=== PATIENT | male | born 1960 | race Caucasian/White ===

== ENCOUNTER 2021-06-11 13:19 | Inpatient (IN) | payer MEDICAID ==
[~2021-06-11] VITALS: Ht 172.7 cm; Wt 88.1 kg
[2021-06-11 13:46] LABS: BASOPHILS % (AUTO) 0.2 % (0-1); EOSINOPHILS % (AUTO) 0 % (0-6); HEMOGLOBIN 15.9 g/dl (14.0-17.9); LYMPHOCYTES # (AUTO) 0.3 X10'3 (1.1-4.8); LYMPHOCYTES % (AUTO) 3.7 % (21-51); MEAN CORPUSCULAR HEMOGLOBIN 28.6 PG (27.0-31.0); MEAN CORPUSCULAR HGB CONC 31.8 g/dL (33.0-36.5); MEAN PLATELET VOLUME 9.6 FL (7.4-10.4); MONOCYTES # (AUTO) 0.2 X10'3 (0-0.9); MONOCYTES % (AUTO) 2.3 % (2-12); NEUTROPHILS % (AUTO) 93.8 % (42-75); PLATELET COUNT 88 X10'3 (140-440); RED BLOOD COUNT 5.55 X10'6 (4.70-6.10); RED CELL DISTRIBUTION WIDTH 20.1 % (11.5-14.5); WHITE BLOOD COUNT 8.5 X10'3 (4.5-11.0)
--- NOTE | 2021-06-11 14:00 | NUR ---
Pt is awake and confused. Jaundice. C/O R UQ pain. Open wounds to postierior B LE. Dried stool on buttocks and down B LE. Edema to B LE. Pt stated that he lives alone and is unable to walk.
[2021-06-11 14:04] LABS: CLARITY,URINE CLOUDY (Clear); COLOR,URINE YELLOW (Yellow); GLUCOSE, URINE NEGATIVE (Neg); KETONES,URINE NEGATIVE (Neg); LEUKOCYTE ESTERASE ,URINE NEGATIVE (Neg); NITRITES, URINE NEGATIVE (Neg); OCCULT BLOOD,URINE SMALL (Neg); PROTEIN,URINE 30 mg/dl (Neg)
[2021-06-11 14:11] LABS: UA COLLECTION TYPE STRAIGHT CATH
[2021-06-11 14:12] LABS: MUCUS STRANDS MODERATE /LPF (Neg); SQUAMOUS EPITHELIAL CELL,UR FEW /LPF (FEW)
[2021-06-11 14:13] LABS: BACTERIA,URINE 1+ /HPF (Neg); RBC,URINE 0-2 /HPF (0-2); WBC,URINE 20-30 /HPF (0-4)
[2021-06-11 14:14] LABS: HYALINE CASTS 0-3 /LPF (NEGATIVE); TRANSITIONAL EPI CELLS,URINE FEW /HPF
[2021-06-11 14:15] LABS: ALANINE AMINOTRANSFERASE 171 U/L (12-78); ALBUMIN 2.1 G/DL (3.4-5.0); ALKALINE PHOSPHATASE 142 IU/L (46-116); ANION GAP 20 (8-16); ASPARTATE AMINO TRANSFERASE 430 U/L (10-37); BLOOD UREA NITROGEN 40 MG/DL (7-18); BUN/CREATININE RATIO 21.5 (5.4-32.0); CALCIUM 8.1 MG/DL (8.5-10.1); CHLORIDE 101 MMOL/L (99-107); CREATININE 1.86 MG/DL (0.60-1.10); GLUCOSE 90 MG/DL (70-104); POTASSIUM 3.9 MMOL/L (3.5-5.1); SODIUM 140 MMOL/L (135-145); TOTAL CARBON DIOXIDE 19.4 MMOL/L (24-32); eGFR 37 ML/MIN
[2021-06-11 14:16] LABS: ALBUMIN/GLOBULIN RATIO 0.6 (1.1-1.5); TOTAL PROTEIN 5.9 G/DL (6.4-8.2)
[2021-06-11] MEDS ORDERED: cefTRIAXone 1g/NS 100ml IVPB 100 ML IV ONE (14:20)
[2021-06-11 14:22] LABS: ANISOCYTOSIS 3+; PLATELET ESTIMATE DECREASED; TOTAL CELLS COUNTED 100
[2021-06-11] MEDS ORDERED: normal saline 1000ML IV soln IVB ONE (14:30)
[2021-06-11] MEDS ORDERED: morphine 4 MG/ML inj SYRINge IV ONE (14:30)
[2021-06-11] MEDS ORDERED: morphine 2 MG/ML inj. syringe IV ONE (14:35)
[2021-06-11] MEDS ORDERED: vancomycin/NS 1 GM ADD-VANTAGE 250 ML IV ONE (14:45)
[2021-06-11] MEDS ORDERED: diltiazem 5mg/ml 5ml inj. IV ONE (14:50)
[2021-06-11] MEDS ORDERED: iohexol 350MG/ML 100ml bottle IV ONE (15:05)
--- NOTE | 2021-06-11 15:15 | NUR ---
Returned from CT.
[2021-06-11 15:41] LABS: ETHANOL < 0.010 GM/DL (0.0-0.010)
--- NOTE | 2021-06-11 15:57 | NUR ---
Eleuterio gabriel (cousin) [phone]
[2021-06-11 16:19] LABS: ABG BASE EXCESS -6.4 mmol/L (-2.0-2.0); ABG HCO3 17.4 mmol/L (22.0-26.0); ABG OXYGEN SATURATION 98.4 % (94-97); ABG PCO2 (T) 30.6 mmHg (35.0-48.0); ABG PO2 (T) 129.8 mmHg (75.0-100.0); ALLEN'S TEST POSITIVE; FCOHb 1.5 % (0.0-3.9); FMetHb 0.3 % (0.0-1.5); FO2Hb 96.6 % (94-97); PATIENT TEMPERATURE 37.1; TOTAL HEMOGLOBIN 15.9 G/dl (14.0-18.0)
[2021-06-11] MEDS ORDERED: heparin 25,000 UNIT/250ml bag 250 ML IV SCH ×2 (16:35→16:41)
[2021-06-11] MEDS ORDERED: heparin 10,000 units/1 ML INJ IV ONE ×4 (16:35→17:20)
[2021-06-11] MEDS ORDERED: heparin 10,000 units/1 ML INJ IV PRN ×2 (16:45→17:20)
[2021-06-11] MEDS ORDERED: ondansetron/PF 4mg/2ml inj IV PRN (16:55)
[2021-06-11] MEDS ORDERED: sodium phosphate inj. 15 MMOL in dextrose 5%-water 250 ML IV PRN (16:55)
[2021-06-11] MEDS ORDERED: Neutra Phos packet PO PRN (16:55)
[2021-06-11] MEDS ORDERED: morphine 2 MG/ML inj. syringe IV PRN (16:55)
[2021-06-11] MEDS ORDERED: sodium phosphate inj. 30 MMOL in dextrose 5%-water 250 ML IV PRN (16:55)
[2021-06-11] MEDS ORDERED: potassium Cl 20 mEq SR tablet PO PRN ×2 (16:55)
[2021-06-11] MEDS ORDERED: LIDOcaine 2% 10ml TOPICAL JELLY (Urojet) TP ONE (16:55)
[2021-06-11] MEDS ORDERED: acetaminophen 325mg tablet PO PRN ×2 (16:55)
[2021-06-11] MEDS ORDERED: ipratropium/albuterol 3ml nebule NEB PRN (16:55)
[2021-06-11] MEDS ORDERED: magnesium 2GM in 50ml NS 50 ML IV PRN (16:55)
[2021-06-11] MEDS ORDERED: NORepinephrine 8mg/ 250ml NS 250 ML IV PRN (16:55)
[2021-06-11] MEDS ORDERED: magnesium Cl slow-release 64mg tablet PO PRN (16:55)
--- NOTE | 2021-06-11 17:00 | NUR ---
Late entry. Dr. Casarez aware of platlet level and INR.
[2021-06-11] MEDS ORDERED: sodium bicarbonate (8.4%) inj. 150 MEQ in dextrose 5%-water 1,000 ML IV SCH (17:05)
[2021-06-11] MEDS ORDERED: LISI5TAB22 PO (17:05)
[2021-06-11] MEDS ORDERED: SPIR25TA5 PO (17:07)
--- NOTE | 2021-06-11 17:16 | NUR ---
Dr. Casarez read the CXR and confirmed placement of R IJ central line.
[2021-06-11] MEDS ORDERED: vancomycin/NS 1 GM ADD-VANTAGE 250 ML X 1 DOSE IV ONE ×2 (17:25→17:55)
--- NOTE | 2021-06-11 17:30 | NUR ---
Bedside echo in progress.
[2021-06-11] MEDS: heparin 25,000 UNIT/250ml bag 250 ML IV SCH (17:42)
[2021-06-11 17:46] LABS: APTT 39 SECONDS (22-32)
[2021-06-11 17:55] LABS: BASOPHILS % (AUTO) 0.1 % (0-1); EOSINOPHILS % (AUTO) 0 % (0-6); HEMATOCRIT 48.7 % (42.0-52.0); HEMOGLOBIN 15.5 g/dl (14.0-17.9); LYMPHOCYTES # (AUTO) 0.3 X10'3 (1.1-4.8); LYMPHOCYTES % (AUTO) 2.8 % (21-51); MEAN CORPUSCULAR HGB CONC 31.9 g/dL (33.0-36.5); MEAN CORPUSCULAR VOLUME 90.9 FL (78-98); MEAN PLATELET VOLUME 10.1 FL (7.4-10.4); MONOCYTES # (AUTO) 0.3 X10'3 (0-0.9); MONOCYTES % (AUTO) 2.7 % (2-12); NEUTROPHILS # (AUTO) 9.9 X10'3 (1.8-7.7); NEUTROPHILS % (AUTO) 94.4 % (42-75); PLATELET COUNT 96 X10'3 (140-440); RED BLOOD COUNT 5.36 X10'6 (4.70-6.10); RED CELL DISTRIBUTION WIDTH 19.9 % (11.5-14.5); WHITE BLOOD COUNT 10.5 X10'3 (4.5-11.0)
[2021-06-11] MEDS ORDERED: HYDROmorphone 1 mg/ml syringe IV PRN (18:00)
[2021-06-11 18:05] LABS: LDL CHOLESTEROL 28 MG/DL (50-100)
[2021-06-11 18:17] LABS: ANISOCYTOSIS 2+; PLATELET ESTIMATE DECREASED; TOTAL CELLS COUNTED 100
[2021-06-11 18:19] LABS: POLYCHROMASIA FEW; SCHISTOCYTES FEW
[2021-06-11 18:20] LABS: BURR CELLS FEW
[2021-06-11] MEDS ORDERED: metoprolol tartrate 1mg/ml inj IV ONE ×3 (18:46→23:45)
[2021-06-11 20:00] VITALS: BP 155/125
[2021-06-11] MEDS ORDERED: docusate sod 100mg capsule PO SCH (20:00)
[2021-06-11] MEDS ORDERED: vancomycin inj 1,000 MG in normal saline 250ml IV soln 250 ML IV SCH (20:00)
--- NOTE | 2021-06-11 20:00 | NUR ---
Called Dr. Kong to notify him of patients increasing heart rate 130's and high 140's and briefly in the 150's. Addendum: 06/12/21 at 0649 by Trinidad Gan RN Dr. Kong order metropolol 5mg push which was administered. Dr. kong gave a verbal order to stop the bicarb drip and he did not want to increase his fluids. In addition his blood pressure was also low and was barely maintaining a map of 60. Last map was 58. He ordered to start phenylephrine for his blood pressure.
[2021-06-11] MEDS: morphine 4 MG/ML inj SYRINge IV PRN (20:11)
[2021-06-11 21:00] VITALS: BP 76/54
[2021-06-11] MEDS ORDERED: phenylephrine inj 50 MG in normal saline 250ml IV soln 245 ML IV PRN (21:10)
[2021-06-11] MEDS ORDERED: PHENYLephrine 10mg/ml inj. 100 MG in normal saline 250ml IV soln 240 ML IV SCH (21:10)
[2021-06-11 22:00] VITALS: BP 85/46
[2021-06-11 23:00] VITALS: BP 88/63
--- NOTE | 2021-06-11 23:00 | NUR ---
Called Dr. Kong about patients increasing heart rate. He was continuing to rise to the high 130's-140's. Dr. Kong ordered another 5ng push IV of metropolol.
[2021-06-11 23:23] LABS: BASOPHILS % (AUTO) 0.1 % (0-1); EOSINOPHILS % (AUTO) 0 % (0-6); HEMATOCRIT 47.6 % (42.0-52.0); HEMOGLOBIN 15.4 g/dl (14.0-17.9); LYMPHOCYTES # (AUTO) 0.3 X10'3 (1.1-4.8); LYMPHOCYTES % (AUTO) 2.9 % (21-51); MEAN CORPUSCULAR HEMOGLOBIN 29.5 PG (27.0-31.0); MEAN CORPUSCULAR HGB CONC 32.3 g/dL (33.0-36.5); MEAN CORPUSCULAR VOLUME 91.3 FL (78-98); MEAN PLATELET VOLUME 10.7 FL (7.4-10.4); MONOCYTES # (AUTO) 0.2 X10'3 (0-0.9); MONOCYTES % (AUTO) 2.6 % (2-12); NEUTROPHILS # (AUTO) 8.2 X10'3 (1.8-7.7); NEUTROPHILS % (AUTO) 94.4 % (42-75); PLATELET COUNT 103 X10'3 (140-440); RED BLOOD COUNT 5.21 X10'6 (4.70-6.10); RED CELL DISTRIBUTION WIDTH 20.2 % (11.5-14.5); WHITE BLOOD COUNT 8.7 X10'3 (4.5-11.0)
[2021-06-11 23:39] LABS: ALANINE AMINOTRANSFERASE 178 U/L (12-78); ALBUMIN 1.9 G/DL (3.4-5.0); ALKALINE PHOSPHATASE 132 IU/L (46-116); ANION GAP 18 (8-16); ASPARTATE AMINO TRANSFERASE 370 U/L (10-37); BILIRUBIN,TOTAL 5.6 MG/DL (0.1-1.0); BLOOD UREA NITROGEN 41 MG/DL (7-18); CALCIUM 8.3 MG/DL (8.5-10.1); CHLORIDE 103 MMOL/L (99-107); CREATININE 1.78 MG/DL (0.60-1.10); GLUCOSE 77 MG/DL (70-104); SODIUM 140 MMOL/L (135-145); TOTAL CARBON DIOXIDE 19.1 MMOL/L (24-32); eGFR 39 ML/MIN
[2021-06-11 23:42] LABS: ALBUMIN/GLOBULIN RATIO 0.5 (1.1-1.5); POTASSIUM 4.3 MMOL/L (3.5-5.1)
[2021-06-11] MEDS: piperacillin/tazo 3.375gm/50ml 50 ML IV SCH (23:59)
[2021-06-12] VITALS (32 sets, daily range): BP systolic 69–108; BP diastolic 39–77
[2021-06-12] MEDS ORDERED: gabapentin 300mg capsule PO SCH
[2021-06-12 01:33] LABS: ANISOCYTOSIS 3+; BURR CELLS FEW; LARGE PLATELETS FEW; PLATELET ESTIMATE DECREASED; POLYCHROMASIA FEW; SCHISTOCYTES FEW
[2021-06-12] MEDS: morphine 4 MG/ML inj SYRINge IV PRN (01:37)
[2021-06-12 02:32] LABS: BASOPHILS % (AUTO) 0.1 % (0-1); EOSINOPHILS % (AUTO) 0.1 % (0-6); HEMATOCRIT 49.8 % (42.0-52.0); LYMPHOCYTES # (AUTO) 0.2 X10'3 (1.1-4.8); LYMPHOCYTES % (AUTO) 2.6 % (21-51); MEAN CORPUSCULAR HEMOGLOBIN 29.3 PG (27.0-31.0); MEAN CORPUSCULAR HGB CONC 32.2 g/dL (33.0-36.5); MEAN PLATELET VOLUME 9.9 FL (7.4-10.4); MONOCYTES # (AUTO) 0.2 X10'3 (0-0.9); MONOCYTES % (AUTO) 2.3 % (2-12); NEUTROPHILS # (AUTO) 9.1 X10'3 (1.8-7.7); NEUTROPHILS % (AUTO) 94.9 % (42-75); PLATELET COUNT 120 X10'3 (140-440); RED BLOOD COUNT 5.47 X10'6 (4.70-6.10); RED CELL DISTRIBUTION WIDTH 20.5 % (11.5-14.5); WHITE BLOOD COUNT 9.6 X10'3 (4.5-11.0)
[2021-06-12 02:55] LABS: ALANINE AMINOTRANSFERASE 196 U/L (12-78); ALKALINE PHOSPHATASE 133 IU/L (46-116); ANION GAP 18 (8-16); ASPARTATE AMINO TRANSFERASE 326 U/L (10-37); BILIRUBIN,TOTAL 5.8 MG/DL (0.1-1.0); BLOOD UREA NITROGEN 44 MG/DL (7-18); BUN/CREATININE RATIO 21.5 (5.4-32.0); CALCIUM 8.4 MG/DL (8.5-10.1); CHLORIDE 102 MMOL/L (99-107); CREATININE 2.05 MG/DL (0.60-1.10); MAGNESIUM 2.1 MG/DL (1.5-2.4); POTASSIUM 4.5 MMOL/L (3.5-5.1); SODIUM 139 MMOL/L (135-145); TOTAL CARBON DIOXIDE 18.9 MMOL/L (24-32); eGFR 33 ML/MIN
[2021-06-12 02:56] LABS: PHOSPHORUS 5.7 MG/DL (2.3-4.5); TOTAL PROTEIN 5.9 G/DL (6.4-8.2)
[2021-06-12 02:57] LABS: ALBUMIN/GLOBULIN RATIO 0.5 (1.1-1.5); GLUCOSE 47 MG/DL (70-104)
[2021-06-12 03:26] LABS: ANISOCYTOSIS 3+; PLATELET ESTIMATE DECREASED; TOTAL CELLS COUNTED 100
[2021-06-12 03:27] LABS: BURR CELLS FEW; LARGE PLATELETS FEW; SCHISTOCYTES FEW
[2021-06-12] MEDS ORDERED: dextrose 50%-water 50ml dispensing syringe IV ONE ×2 (04:30→11:07)
--- NOTE | 2021-06-12 05:00 | NUR ---
We rounded on him this morning, the doctor ordered an amiodarone drip to better control his heart rate, albumin and lasix to help with his decreased urine output and perfusion. Also an abdominal/ pelvis ultrasound. Will begin to administer medications.
[2021-06-12] MEDS ORDERED: furosemide 10 MG/1 ML 10ml inj IV ONE (05:05)
[2021-06-12] MEDS ORDERED: amiodarone 150mg/dext, iso-os 100 ML IV ONE ×2 (05:05→05:08)
[2021-06-12] MEDS ORDERED: albumin (human) 25% 100 ML IV solution IV ONE (05:05)
[2021-06-12] MEDS: amiodarone/D5 360MG/200ML BAG 200 ML IV SCH ×4 (05:42→20:16)
--- NOTE | 2021-06-12 06:30 | NUR ---
Problems reprioritized. Patient report given, questions answered & plan of care reviewed with JOANNE Law.
[2021-06-12] MEDS ORDERED: MIDAZolam 1mg/ml 10ml vial IV ONE (07:15)
[2021-06-12] MEDS ORDERED: midazolam 1 mg/ML 2ml injection IV ONE (07:20)
[2021-06-12] MEDS ORDERED: DOBUTamine-DoBUTrex 500mg/D5W 250 ML IV ONE (07:23)
[2021-06-12] MEDS: NORepinephrine 8mg/ 250ml NS 250 ML IV SCH ×2 (07:25→11:18)
[2021-06-12] MEDS ORDERED: pantoprazole 40mg Tablet.DR PO SCH (07:30)
[2021-06-12] MEDS: vasopressin inj. 40 UNIT in normal saline 50ml IV soln 38 ML IV SCH (07:40)
[2021-06-12 07:55] LABS: ABG BASE EXCESS -24.8 mmol/L (-2.0-2.0); ABG HCO3 4.2 mmol/L (22.0-26.0); ABG OXYGEN SATURATION 95.4 % (94-97); ABG PCO2 (T) 16.8 mmHg (35.0-48.0); ABG PO2 (T) 113.5 mmHg (75.0-100.0); FCOHb 0.3 % (0.0-3.9); FMetHb 0.6 % (0.0-1.5); FO2Hb 94.5 % (94-97); PATIENT TEMPERATURE 37.1; PEEP 8 cm H2O; RESPIRATORY RATE 20 b/min; TIDAL VOLUME 500 mL; TOTAL HEMOGLOBIN 8.5 G/dl (14.0-18.0)
[2021-06-12] MEDS ORDERED: sodium bicarbonate (8.4%) 1 mEq/ml syringe ONE ×2 (07:56)
[2021-06-12] MEDS ORDERED: dexmedetomidine/D5W 100mL 100 ML IV PRN (08:00)
[2021-06-12] MEDS ORDERED: K and/or MAG REPLACEMENT MC SCH (08:00)
[2021-06-12] MEDS ORDERED: FENTANYL-0.9 % NACL/PF 100 ML IV PRN (08:00)
[2021-06-12] MEDS ORDERED: lactose-reduced food (Ensure Enlive) - 237ml bottle PO SCH (08:00)
[2021-06-12] MEDS ORDERED: propofol 1000mg/100ml bottle 100 ML IV SCH (08:00)
[2021-06-12] MEDS: DOBUTamine-DoBUTrex 500mg/D5W 250 ML IV SCH (08:00)
[2021-06-12] MEDS ORDERED: vasopressin inj. 40 UNIT in dextrose 5%-water 50ml 38 ML IV SCH (08:00)
[2021-06-12] MEDS: piperacillin/tazo 3.375gm/50ml 50 ML IV SCH ×2 (08:00→15:59)
[2021-06-12] MEDS ORDERED: lansoprazole 15mg solutab PO SCH (08:25)
[2021-06-12] MEDS ORDERED: digoxin 250mcg/ml 2ml ampule IV ONE (08:55)
[2021-06-12 09:39] LABS: ABG BASE EXCESS -20.9 mmol/L (-2.0-2.0); ABG HCO3 10.7 mmol/L (22.0-26.0); ABG OXYGEN SATURATION 96.4 % (94-97); ABG PO2 (T) 114.4 mmHg (75.0-100.0); FCOHb 0.2 % (0.0-3.9); FMetHb 0.7 % (0.0-1.5); FO2Hb 95.5 % (94-97); PATIENT TEMPERATURE 36.8; PEEP 8 cm H2O; RESPIRATORY RATE 20 b/min; TIDAL VOLUME 500 mL; TOTAL HEMOGLOBIN 18.4 G/dl (14.0-18.0)
[2021-06-12] MEDS ORDERED: dextrose 50%-water 50ml dispensing syringe IV PRN ×2 (11:10)
[2021-06-12] MEDS ORDERED: MESSAGE TO PHARMACY PO ONE (11:10)
[2021-06-12] MEDS ORDERED: DEXTROSE 15 GM of carb/4 tabs (each vial/BOTTLE has 4 tablets) PO PRN ×2 (11:10)
[2021-06-12] MEDS ORDERED: insulin Lispro (HumaLOG) vial - multi-dose SQ SCH (11:10)
[2021-06-12] MEDS ORDERED: glucagon, human recombinant 1mg kit SUBCUT PRN (11:10)
[2021-06-12] MEDS ORDERED: acetaminophen 325mg tablet OGT PRN (11:29)
[2021-06-12] MEDS ORDERED: DEXTROSE 15 GM of carb/4 tabs (each vial/BOTTLE has 4 tablets) OGT PRN ×2 (11:30)
[2021-06-12] MEDS ORDERED: potassium Cl 20 mEq SR tablet OGT PRN ×2 (11:32→11:33)
[2021-06-12] MEDS ORDERED: Neutra Phos packet OGT PRN (11:32)
[2021-06-12] MEDS ORDERED: lansoprazole 15mg solutab OGT SCH (11:32)
[2021-06-12] MEDS ORDERED: acetaminophen 325mg/10.15ml oral unit dose solution OGT PRN (11:35)
[2021-06-12] MEDS ORDERED: sodium chloride inj. 154 MEQ in Dextrose 10%-water IV solution 961.5 ML IV SCH (11:55)
--- NOTE | 2021-06-12 11:55 | NUR ---
Initial: Pt admit for septic shock, LV and LA thrombus with AAA, RLE cellulitis, DAREK versus CKD, and PNA. Wound care has been consulted, pending assessment at this time. Pt currently intubated and sedated with Propofol visualized at bedside to be running at 2.64 mL/hr providing 69 kcal/day. No OGT in place at this time though will place TF recommendations below for if expected prolonged intubation and to receive nutrition support. Noted pt having frequent episodes of hypoglycemia, most recently down to less than 10 mg/dL. Pt on glycemic protocol which includes PRN dextrose. LBM 06/12. Will continue to follow closely. Recommendations: 1) IF TF, continuous Vital AF with 70 mL/hr goal. Begin at 30 mL/hr and advance by 20 mL Q8H as tolerated to goal rate. Once at goal to provide 1680 mL total volume/day, 2016 kcal, 126 g protein, and 1362 mL water 2) IF TF, monitor Propofol rate and need to adjust recommendations 3) IF TF, additional water flush per MD in view of renal status 4) IF TF, prealbumin q Wednesday/; daily scaled weights 5) Consider phos binder with initiation of nutrition 6) Routine bowel care 7) Advance to regular diet as medically indicated following extubation Addendum: 06/12/21 at [address] Amended: Links added.
[2021-06-12] MEDS ORDERED: vancomycin/NS 1 GM ADD-VANTAGE 250 ML X 1 DOSE IV PRN (12:20)
[2021-06-12] MEDS: Dextrose 10%-water IV solution 1,000 ML IV SCH ×2 (12:30→20:15)
[2021-06-12] MEDS ORDERED: sodium bicarbonate (8.4%) 1 mEq/ml syringe IV ONE ×2 (12:30→13:45)
[2021-06-12] MEDS ORDERED: adenosine 3mg/ml 2ml vial IV ONE (12:30)
[2021-06-12 13:10] LABS: VANCOMYCIN,RANDOM 20.1 UG/ML
[2021-06-12] MEDS: NORepinephrine inj. 32 MG in normal saline 250ml IV soln 218 ML IV SCH ×2 (13:13→18:04)
[2021-06-12 13:37] LABS: ABG BASE EXCESS -20.9 mmol/L (-2.0-2.0); ABG HCO3 9.5 mmol/L (22.0-26.0); ABG OXYGEN SATURATION 96.5 % (94-97); ABG PCO2 (T) 36.6 mmHg (35.0-48.0); ABG PO2 (T) 106.2 mmHg (75.0-100.0); FCOHb 0.2 % (0.0-3.9); FMetHb 0.6 % (0.0-1.5); FO2Hb 95.7 % (94-97); PATIENT TEMPERATURE 36.6; PEEP 10 cm H2O; RESPIRATORY RATE 26 b/min; TIDAL VOLUME 500 mL; TOTAL HEMOGLOBIN 18.3 G/dl (14.0-18.0)
[2021-06-12] MEDS ORDERED: glucagon, human recombinant 1mg kit SUBCUT ONE (13:40)
[2021-06-12] MEDS: methylPREDNISolone sod succ 125mg/2ml vial IV SCH ×2 (13:54→20:13)
[2021-06-12] MEDS ORDERED: vancomycin/NS 1 GM ADD-VANTAGE 250 ML X 1 DOSE IV SCH (18:00)
[2021-06-12] MEDS: ipratropium/albuterol 3ml nebule NEB SCH ×2 (19:00→23:00)
--- NOTE | 2021-06-12 19:30 | NUR ---
Patient's family present at bedside. Brother, Raul Knowles, stated that the family has decided to changed patient's code status to DNR with the understanding that patient will continue current course of treatment, but in the event of cardiac arrest, CPR will not be performed. All questions from family have been satisfactorily asked and answered. Dr. Fernandez was consulted in the matter and was made aware of the family wishes.
[2021-06-12] MEDS ORDERED: docusate sodium 100mg/10ml UD cup OGT SCH (20:00)
[2021-06-12] MEDS ORDERED: gabapentin 300mg capsule OGT SCH (21:00)
[2021-06-12] MEDS ORDERED: insulin glargine (Lantus) pen - multi-dose SQ SCH (21:00)
[2021-06-12] MEDS: heparin 25,000 UNIT/250ml bag 250 ML IV SCH (21:00)
[2021-06-13] VITALS: BP 95/53
[2021-06-13] MEDS: piperacillin/tazo 3.375gm/50ml 50 ML IV SCH (00:10)
[2021-06-13] MEDS: vasopressin inj. 40 UNIT in normal saline 50ml IV soln 38 ML IV SCH (00:11)
[2021-06-13 01:00] VITALS: BP 92/50
[2021-06-13] MEDS: DOBUTamine-DoBUTrex 500mg/D5W 250 ML IV SCH (01:14)
[2021-06-13] MEDS: NORepinephrine inj. 32 MG in normal saline 250ml IV soln 218 ML IV SCH (01:14)
[2021-06-13] MEDS: methylPREDNISolone sod succ 125mg/2ml vial IV SCH (01:14)
[2021-06-13 02:00] VITALS: BP 93/50
[2021-06-13] MEDS ORDERED: LIDOcaine 2% (20 mg/ml) 5ml cardiac syringe ONE (02:59)
[2021-06-13 03:00] VITALS: BP 90/42
[2021-06-13] MEDS ORDERED: VANCOMYCIN LEVEL IV SCH (03:00)
[2021-06-13 03:01] LABS: ABG BASE EXCESS -27.3 mmol/L (-2.0-2.0); ABG HCO3 5.8 mmol/L (22.0-26.0); ABG OXYGEN SATURATION 93.5 % (94-97); ABG PCO2 (T) 33.4 mmHg (35.0-48.0); ABG PO2 (T) 95.6 mmHg (75.0-100.0); FMetHb 0.2 % (0.0-1.5); FO2Hb 92.4 % (94-97); PATIENT TEMPERATURE 37.6; PEEP 10 cm H2O; RESPIRATORY RATE 28 b/min; TIDAL VOLUME 500 mL; TOTAL HEMOGLOBIN 16.3 G/dl (14.0-18.0)
[2021-06-13 03:19] LABS: MEAN PLATELET VOLUME 9.8 FL (7.4-10.4); MONOCYTES # (AUTO) 0.3 X10'3 (0-0.9); WHITE BLOOD COUNT 13.3 X10'3 (4.5-11.0)
[2021-06-13 03:22] LABS: BASOPHILS % (AUTO) 0.1 % (0-1); EOSINOPHILS # (AUTO) 0.1 X10'3 (0-0.9); EOSINOPHILS % (AUTO) 0.4 % (0-6); LYMPHOCYTES # (AUTO) 0.8 X10'3 (1.1-4.8); LYMPHOCYTES % (AUTO) 6.1 % (21-51); MONOCYTES % (AUTO) 2.6 % (2-12); NEUTROPHILS # (AUTO) 12.1 X10'3 (1.8-7.7); NEUTROPHILS % (AUTO) 90.8 % (42-75); PLATELET COUNT 55 X10'3 (140-440)
[2021-06-13 03:40] LABS: ALANINE AMINOTRANSFERASE 916 U/L (12-78); ALBUMIN 1.2 G/DL (3.4-5.0); ALKALINE PHOSPHATASE 133 IU/L (46-116); BILIRUBIN,TOTAL 6.7 MG/DL (0.1-1.0); BLOOD UREA NITROGEN 46 MG/DL (7-18); BUN/CREATININE RATIO 14.6 (5.4-32.0); CALCIUM 6.8 MG/DL (8.5-10.1); CHLORIDE 99 MMOL/L (99-107); CREATININE 3.15 MG/DL (0.60-1.10); GLUCOSE 144 MG/DL (70-104); MAGNESIUM 2.8 MG/DL (1.5-2.4); VANCOMYCIN,RANDOM 16.7 UG/ML; eGFR 20 ML/MIN
[2021-06-13 03:55] LABS: ANION GAP 20 (8-16); SODIUM 126 MMOL/L (135-145); TRIGLYCERIDES 138 MG/DL (20-135)
[2021-06-13 04:01] LABS: PHOSPHORUS 12.8 MG/DL (2.3-4.5)
[2021-06-13 04:02] LABS: ASPARTATE AMINO TRANSFERASE 4446 U/L (10-37)
[2021-06-13 04:08] LABS: ALBUMIN/GLOBULIN RATIO 0.4 (1.1-1.5); TOTAL PROTEIN 4.1 G/DL (6.4-8.2)
--- NOTE | 2021-06-13 04:08 | NUR ---
RN IS TO DOCUMENT YES TO ALL APPLICABLE AREAS Pronouncement of : 1. Time Physician Notified:309 2. Date of :06/13/2021 3. Time of : 307 4. DNR/Withdraw life support documented:Yes 5. Monitor strip has been placed on chart:Yes 6. Assessment process is of one-minute duration and includes following criteria: a) Patient is unresponsive to all stimuli: Yes b) Pupils fixed and non-reactive:Yes c) Auscultation of precordium reveals absence of heart tones:Yes d) Auscultation of lungs reveals absence of breath sounds:Yes e) Absence of blood pressure / all vital signs:Yes f) QRS complexes are not present on monitor / EKG strip:Yes g) Pacer spikes without capture:N/A 4. Comments:
[2021-06-13 04:09] LABS: APTT 118 SECONDS (22-32); HEMATOCRIT 49.8 % (42.0-52.0); HEMOGLOBIN 15.2 g/dl (14.0-17.9); RED BLOOD COUNT 5.17 X10'6 (4.70-6.10)
[2021-06-13 04:10] LABS: MEAN CORPUSCULAR HEMOGLOBIN 29.4 PG (27.0-31.0); MEAN CORPUSCULAR HGB CONC 30.5 g/dL (33.0-36.5); MEAN CORPUSCULAR VOLUME 96.4 FL (78-98)
[2021-06-13 04:11] LABS: POTASSIUM 6.6 MMOL/L (3.5-5.1)
[2021-06-13 04:12] LABS: TOTAL CARBON DIOXIDE 6.6 MMOL/L (24-32)
[2021-06-13] MEDS ORDERED: mineral oil/petrolatum ophthal oint EACHEYE SCH (08:00)
[2021-06-13] MEDS ORDERED: bisacodyl 10mg suppository rectal RC PRN (16:55)
== END 2021-06-13 03:08 | DRG 720 ==
LOC: ER 13:19 → ED HOLD 17:01 → ICU 2S 19:15
PROVIDERS: ADMIT Internal Medicine Critical Care Medicine; ATTEND Internal Medicine Critical Care Medicine
PROC: B32T1ZZ Computerized Tomography (CT Scan) of Left Pulmonary Artery using Low Osmolar Contrast (ICD-10-PCS; 2021-06-11)
PROC: B3201ZZ Computerized Tomography (CT Scan) of Thoracic Aorta using Low Osmolar Contrast (ICD-10-PCS; 2021-06-11)
PROC: B32S1ZZ Computerized Tomography (CT Scan) of Right Pulmonary Artery using Low Osmolar Contrast (ICD-10-PCS; 2021-06-11)
PROC: B4201ZZ Computerized Tomography (CT Scan) of Abdominal Aorta using Low Osmolar Contrast (ICD-10-PCS; 2021-06-11)
PROC: B4241ZZ Computerized Tomography (CT Scan) of Superior Mesenteric Artery using Low Osmolar Contrast (ICD-10-PCS; 2021-06-11)
PROC: B4281ZZ Computerized Tomography (CT Scan) of Bilateral Renal Arteries using Low Osmolar Contrast (ICD-10-PCS; 2021-06-11)
PROC: B42C1ZZ Computerized Tomography (CT Scan) of Pelvic Arteries using Low Osmolar Contrast (ICD-10-PCS; 2021-06-11)
PROC: B42H1ZZ Computerized Tomography (CT Scan) of Bilateral Lower Extremity Arteries using Low Osmolar Contrast (ICD-10-PCS; 2021-06-11)
PROC: B4211ZZ Computerized Tomography (CT Scan) of Celiac Artery using Low Osmolar Contrast (ICD-10-PCS; 2021-06-11)
PROC: 05H333Z Insertion of Infusion Device into Right Innominate Vein, Percutaneous Approach (ICD-10-PCS; 2021-06-11)
PROC: 5A1935Z Respiratory Ventilation, Less than 24 Consecutive Hours (ICD-10-PCS; principal; 2021-06-12)
PROC: 5A12012 Performance of Cardiac Output, Single, Manual (ICD-10-PCS; 2021-06-12)
PROC: 0BH17EZ Insertion of Endotracheal Airway into Trachea, Via Natural or Artificial Opening (ICD-10-PCS; 2021-06-12)
PROC: 04HY32Z Insertion of Monitoring Device into Lower Artery, Percutaneous Approach (ICD-10-PCS; 2021-06-12)
PROC: 4A133B1 Monitoring of Arterial Pressure, Peripheral, Percutaneous Approach (ICD-10-PCS; 2021-06-12)
PROC: 4A133J1 Monitoring of Arterial Pulse, Peripheral, Percutaneous Approach (ICD-10-PCS; 2021-06-12)
DX: A41.9 Sepsis, unspecified organism (principal); J96.01 Acute respiratory failure with hypoxia; I46.9 Cardiac arrest, cause unspecified; R65.21 Severe sepsis with septic shock; G93.41 Metabolic encephalopathy; K70.40 Alcoholic hepatic failure without coma; J18.9 Pneumonia, unspecified organism; D69.6 Thrombocytopenia, unspecified; E87.2 Acidosis; Z20.822 Contact with and (suspected) exposure to COVID-19; I42.9 Cardiomyopathy, unspecified; N17.9 Acute kidney failure, unspecified; I50.20 Unspecified systolic (congestive) heart failure; Z60.2 Problems related to living alone; Z66 Do not resuscitate; I50.82 Biventricular heart failure; S81.801A Unspecified open wound, right lower leg, initial encounter; X58.XXXA Exposure to other specified factors, initial encounter; E16.2 Hypoglycemia, unspecified; G89.29 Other chronic pain; R73.9 Hyperglycemia, unspecified; I47.2 Ventricular tachycardia; F10.20 Alcohol dependence, uncomplicated; I48.91 Unspecified atrial fibrillation; F17.200 Nicotine dependence, unspecified, uncomplicated; I51.3 Intracardiac thrombosis, not elsewhere classified; I71.4 Abdominal aortic aneurysm, without rupture; L03.115 Cellulitis of right lower limb; Z86.73 Personal history of transient ischemic attack (TIA), and cerebral infarction without residual deficits; Z79.899 Other long term (current) drug therapy; Y93.89 Activity, other specified; Y92.89 Other specified places as the place of occurrence of the external cause; Y99.8 Other external cause status
CPT/HCPCS: 36415; 36600; 71045; 71275; 74174; 74176; 76700; 80053; 80162; 80202; 80320; 81001; 82803; 82948; 83036; 83605; 83721; 83735; 83880; 84100; 84145; 84443; 84478; 85007; 85008; 85018; 85025; 85610; 85730; 87040; 87070; 87077; 87088; 87186; 87635; 93005; 93306; 93922; 93970; 94002; 94760; 96365; 96367; 96375; 99291; 99292; C9803; G0378; J0153; J0282; J0696; J1160; J1250; J1610; J1644; J1815; J1940; J2250; J2270; J2370; J2543; J2704; J2930; J3010; J3370; J3490; J7030; J7050; J7070; P9047; Q9967